=== PATIENT | female | born 1990 | race Caucasian/White ===

== ENCOUNTER 2022-12-29 15:11 | Emergency (ER) | payer MEDICAID ==
[2022-12-29 16:04] LABS: APPEARANCE,URINE CLEAR (CLEAR); BILIRUBIN,URINE NEGATIVE (NEGATIVE); COLOR,URINE YELLOW (YELLOW); GLUCOSE,URINE NEGATIVE (NEGATIVE); KETONES,URINE NEGATIVE (NEGATIVE); LEUKOCYTE ESTERASE,URINE NEGATIVE (NEGATIVE); NITRITE,URINE NEGATIVE (NEGATIVE); OCCULT BLOOD,URINE NEGATIVE (NEGATIVE); PH,URINE 5.5 (5.0-8.0); PROTEIN,URINE NEGATIVE (NEGATIVE); UROBILINOGEN,URINE 0.2 EU/dL (0.2-1.0)
[2022-12-29 16:10] LABS: AMORPHOUS SEDIMENT,URINE RARE; BACTERIA,URINE NOT SEEN; EPITHELIAL CELLS,URINE NOT SEEN; MUCUS,URINE NOT SEEN; RBC,URINE NOT SEEN (0-5); WBC,URINE NOT SEEN (0-5)
== END 2022-12-29 16:19 | disposition home or self-care (01) ==
LOC: JP.ED 15:11
DX: K59.00 Constipation, unspecified (principal); Z79.899 Other long term (current) drug therapy
CPT/HCPCS: 74018; 74018-26; 81001; 81025; 99284

== ENCOUNTER 2023-02-05 12:55 | Emergency (ER) | payer MEDICAID ==
[2023-02-05] MEDS ORDERED: Cyclobenzaprine 10 MG Tab PO ONE (14:18)
[2023-02-05] MEDS ORDERED: Ketorolac 30 MG/ML SDV IM ONE (14:18)
== END 2023-02-05 15:42 | disposition home or self-care (01) ==
LOC: JP.ED 12:55
DX: S29.012A Strain of muscle and tendon of back wall of thorax, initial encounter (principal); J45.909 Unspecified asthma, uncomplicated; Z79.899 Other long term (current) drug therapy
CPT/HCPCS: 96372; 99283; A9270; J1885